=== PATIENT | male | born 1990 ===

== ENCOUNTER 2018-03-13 23:58 | Emergency (ER) | payer SELFPAY ==
--- NOTE | 2018-03-14 00:17 | ED PDOC ---
Arrival/HPI <Chris Monreal - Last Filed: 03/14/18 03:24> - General Historian: Patient, EMS EM Caveat: Uncooperative, Language Barrier - History of Present Illness Time/Duration: Prior to Arrival (BIBA) Symptom Onset: Sudden Symptom Course: Unchanged Quality: Unable to Describe Severity Level: 1 Activities at Onset: Rest Context: Street <Myra Mckeon - Last Filed: 03/14/18 23:53> - General Chief Complaint: Substance Abuse Time Seen by Provider: 03/14/18 00:07 - History of Present Illness Narrative History of Present Illness (Text): 03/14/18 01:08 Pt is a 27 yr old male who was found on the street in [place] earlier this evening and brought in by ambulance. On arrival, pt A&O but would not respond to questions and would not give history. Pt produced a [employer] drivers license and pointed to it. Denies shortness of breath, chest pain, fevers, chills, nausea, vomiting, diarrhea, or other complaints. (Myra Mckeon) Past Medical History - Provider Review Nursing Documentation Reviewed: Yes - Travel History Have you recently traveled outside [place] w/in the past 3 mons?: No - Past History Past History: No Previous <Myra Mckeon - Last Filed: 03/14/18 23:53> Family/Social History - Physician Review Nursing Documentation Reviewed: Yes Family/Social History: Unknown Family HX <Myra Mckeon - Last Filed: 03/14/18 23:53> Allergies/Home Meds <Chris Monreal - Last Filed: 03/14/18 03:24> <Myra Mckeon - Last Filed: 03/14/18 23:53> Allergies/Adverse Reactions: Allergies No Known Allergies Allergy (Verified 08/31/16 17:20) Home Medications: Home Meds Medication Instructions Recorded Confirmed Gabapentin [Neurontin] 800 mg PO DAILY 09/12/15 08/31/16 Unobtainable 03/14/18 03/14/18 Review of Systems - Review of Systems Constitutional: Normal Eyes: Normal ENT: Normal Respiratory: Normal Cardiovascular: Normal Gastrointestinal: Normal Genitourinary Male: Normal Musculoskeletal: Normal Skin: Normal Neurological: Normal Endocrine: Normal Hemo/Lymphatic: Normal Psychiatric: Normal <Myra Mckeon - Last Filed: 03/14/18 23:53> Physical Exam Vital Signs Reviewed: Yes Temperature: Afebrile Blood Pressure: Normal Pulse: Regular Respiratory Rate: Normal Appearance: Positive for: Well-Appearing, Non-Toxic, Comfortable Pain Distress: None Mental Status: Positive for: Confused - Systems Exam Head: Present: Atraumatic, Normocephalic Pupils: Present: PERRL, Other (dilated) Extroacular Muscles: Present: EOMI Conjunctiva: Present: Normal Mouth: Present: Moist Mucous Membranes Neck: Present: Normal Range of Motion Respiratory/Chest: Present: Clear to Auscultation, Good Air Exchange. No: Respiratory Distress, Accessory Muscle Use Cardiovascular: Present: Regular Rate and Rhythm, Normal S1, S2. No: Murmurs Abdomen: No: Tenderness, Distention, Peritoneal Signs Back: Present: Normal Inspection Upper Extremity: Present: Normal Inspection. No: Cyanosis, Edema Lower Extremity: Present: Normal Inspection. No: Edema Neurological: Present: GCS=15, CN II-XII Intact, Speech Normal Skin: Present: Warm, Dry, Normal Color. No: Rashes Psychiatric: Present: Alert, Agitated, Other (PCP confusion) <Myra Mckeon - Last Filed: 03/14/18 23:53> Vital Signs Temp Pulse Resp BP Pulse Ox 03/14/18 01:59 82 16 118/64 100 03/14/18 00:19 97.3 F L 81 18 120/107 H 100 03/13/18 23:59 84 18 124/76 99 Medical Decision Making <Chris Monreal - Last Filed: 03/14/18 03:24> <Myra Mckeon - Last Filed: 03/14/18 23:53> ED Course and Treatment: 03/14/18 01:11 Impression Pt is a 27 yr old male who was found on the street in [place] earlier this evening and brought in by ambulance. Plan Labs including Tox screen and ETOH Assess and dispo Progress note Labs wnl and VSS 03/14/18 01:39 was able to converse with pt is alert and oriented x [address] but not time Pt states he took PCP sometime before he was found but would not say how much; pt continues to be slow to respond Will continue to monitor until alert and stable Pt A&Ox3 and asking to leave; VSS and ambulated well on d/c (Myra Mckeon) - Lab Interpretations Lab Results: 03/14/18 00:26 03/14/18 00:26 Lab Results 03/14/18 00:40: Urine Opiates Screen Negative, Urine Methadone Screen Negative, Ur Barbiturates Screen Negative, Ur Phencyclidine Scrn Positive H, Ur Amphetamines Screen Negative, U Benzodiazepines Scrn Negative, U Oth Cocaine Metabols Negative, U Cannabinoids Screen Positive H 03/14/18 00:40: Urine Color Yellow, Urine Appearance Clear, Urine pH 6.0, Ur Specific [place] >= 1.030, Urine Protein 30 H, Urine Glucose (UA) Negative, Urine Ketones 15 H, Urine Blood Small H, Urine Nitrate Negative, Urine Bilirubin Small H, Urine Urobilinogen 0.2, Ur Leukocyte Esterase Negative, Urine RBC 1 - 3, Urine WBC 0 - 2, Ur Epithelial Cells 0 - 2, Urine Other Mucus 03/14/18 00:26: Alcohol, Quantitative < 10 03/14/18 00:26: Sodium 143, Potassium 3.9, Chloride 104, Carbon Dioxide 27, Anion Gap 16, BUN 14, Creatinine 1.1, Est GFR ( Amer) > 60, Est GFR (Non- Af Amer) > 60, Random Glucose 106, Calcium 8.9, Total Bilirubin 1.0, AST 68 H, ALT 42, Alkaline Phosphatase 52, Total Protein 7.3, Albumin 4.6, Globulin 2.8, Albumin/Globulin Ratio 1.7 03/14/18 00:26: WBC 12.9 H, RBC 4.29, Hgb 13.5 L, Hct 40.1 L, MCV 93.5, MCH 31.5 , MCHC 33.7, RDW 13.8, Plt Count 169, MPV 9.0 - PA / BIOINFORMATICIST / Resident Statement / has reviewed & agrees with the documentation as recorded. <Chris Monreal - Last Filed: 03/14/18 03:24> Disposition/Present on Arrival <Chris Monreal - Last Filed: 03/14/18 03:24> - Present on Arrival Any Indicators Present on Arrival: Yes History of DVT/PE: No History of Uncontrolled Diabetes: No Urinary Catheter: No - Disposition Have Diagnosis and Disposition been Completed?: Yes Disposition Time: 02:52 Patient Plan: Discharge <Myra Mckeon - Last Filed: 03/14/18 23:53> - Disposition Diagnosis: PCP (phencyclidine) abuse, Marijuana abuse Disposition: HOME/ ROUTINE Condition: STABLE Discharge Instructions (ExitCare): Drug Abuse and Drug Addiction (DC) Forms: [employer] ([place]ian)
[2018-03-14 00:18] VITALS: BMI 21.9
[2018-03-14 00:23] VITALS: TEMP 97.3; O2SAT 100
[2018-03-14 00:46] LABS: HEMOGLOBIN 13.5 g/dL (14.0-18.0); MEAN CELL VOLUME 93.5 fl (80.0-105.0); MEAN CORPUSCULAR HEMOGLOBIN 31.5 pg (25.0-35.0); MEAN CORPUSCULAR HGB CONC 33.7 g/dl (31.0-37.0); RBC 4.29 10^6/uL (3.5-6.1); RED CELL DISTRIBUTION WIDTH 13.8 % (11.5-14.5); WHITE BLOOD COUNT 12.9 10^3/ul (4.5-11.0)
[2018-03-14 00:52] LABS: URINE BILIRUBIN SMALL (NEGATIVE); URINE BLOOD SMALL (NEGATIVE); URINE GLUCOSE (UA) NEGATIVE (NEGATIVE); URINE LEUKOCYTE ESTERASE NEGATIVE Leu/uL (NEGATIVE); URINE PROTEIN 30 mg/dL (<30 mg/dL); URINE UROBILINOGEN 0.2 E.U./dL (<1 E.U./dL)
[2018-03-14 00:59] LABS: URINE APPEARANCE CLEAR (CLEAR); URINE COLOR YELLOW (YELLOW)
[2018-03-14 01:01] LABS: ALB/GLOB RATIO 1.7 (1.1-1.8); ALBUMIN 4.6 g/dL (3.0-4.8); ALT/SGPT 42 U/L (7-56); AST/SGOT 68 U/L (17-59); BLOOD UREA NITROGEN 14 mg/dL (7-21); CALCIUM 8.9 mg/dL (8.4-10.5); GFR AFRICAN-AMERICAN > 60; GFR NON-AFRICAN AMERICAN > 60
[2018-03-14 01:04] LABS: URINE EPITHELIAL CELLS 0 - 2 /hpf (0-5); URINE WBC 0 - 2 /hpf (0-6)
[2018-03-14 01:32] LABS: BARBITURATES, UR NEGATIVE (NEGATIVE); BENZODIAZEPINES, UR NEGATIVE (NEGATIVE); OPIATES, UR NEGATIVE (NEGATIVE); PHENCYCLIDINE, UR POSITIVE (NEGATIVE)
[2018-03-14 08:04] VITALS: BP 118/64; PULSE 82; RESP 16
== END 2018-03-14 02:53 | disposition home or self-care (01) ==
LOC: MERGE 23:58 → ED 23:58
DX: F16.10 Hallucinogen abuse, uncomplicated (principal); F12.10 Cannabis abuse, uncomplicated
CPT/HCPCS: 80053; 81001; 85027; 99282; G0480

== ENCOUNTER 2018-03-21 16:00 | Emergency (ER) | payer MEDICAID, OTHER ==
[2018-03-21 16:01] VITALS: BMI 28.7
[2018-03-21 16:31] VITALS: TEMP 98
[2018-03-21] MEDS ORDERED: Sodium Chloride 0.9% 500 ML IV STA (17:27)
[2018-03-21] MEDS ORDERED: Sodium Chloride 0.9% 1,000 ML IV STA (17:29)
--- NOTE | 2018-03-21 18:04 | RAD ---
HISTORY: drug abuse COMPARISON: No prior. FINDINGS: LUNGS: No active pulmonary disease. PLEURA: No significant pleural effusion identified, no pneumothorax apparent. CARDIOVASCULAR: Normal. OSSEOUS STRUCTURES: No significant abnormalities. VISUALIZED UPPER ABDOMEN: Normal. OTHER FINDINGS: None. IMPRESSION: No active disease.
[2018-03-21 18:13] LABS: BASO # 0.01 K/mm3 (0.0-2.0); BASO % 0.1 % (0.0-3.0); EOS % 0.4 % (1.5-5.0); GRAN # 8.52 (1.4-6.5); GRAN % 83.6 % (50.0-68.0); HEMOGLOBIN 16.2 g/dL (14.0-18.0); LYMPH # 1.1 (1.2-3.4); MEAN CELL VOLUME 93.8 fl (80.0-105.0); MEAN CORPUSCULAR HEMOGLOBIN 32.4 pg (25.0-35.0); MEAN CORPUSCULAR HGB CONC 34.5 g/dl (31.0-37.0); MEAN PLATELET VOLUME 9.2 fl (7.0-11.0); MONO # 0.5 (0.1-0.6); MONO % 4.9 % (1.0-6.0); RED CELL DISTRIBUTION WIDTH 13.7 % (11.5-14.5); URINE BILIRUBIN NEGATIVE (NEGATIVE); URINE BLOOD TRACE-INTACT (NEGATIVE); URINE GLUCOSE (UA) NEGATIVE (NEGATIVE); URINE LEUKOCYTE ESTERASE NEGATIVE Leu/uL (NEGATIVE); URINE PROTEIN 30 mg/dL (<30 mg/dL); URINE UROBILINOGEN 0.2 E.U./dL (<1 E.U./dL); WHITE BLOOD COUNT 10.2 10^3/ul (4.5-11.0)
[2018-03-21 18:14] LABS: URINE APPEARANCE CLEAR (CLEAR); URINE COLOR YELLOW (YELLOW)
[2018-03-21 18:20] LABS: SALICYLATE < 1 mg/dL (2.0-20.0)
[2018-03-21 18:22] LABS: ALB/GLOB RATIO 1.5 (1.1-1.8); ALBUMIN 4.9 g/dL (3.0-4.8); ALT/SGPT 34 U/L (7-56); AST/SGOT 28 U/L (17-59); BLOOD UREA NITROGEN 18 mg/dL (7-21); CALCIUM 9.4 mg/dL (8.4-10.5); GFR NON-AFRICAN AMERICAN > 60; URINE BACTERIA MOD (NEG); URINE FINE GRANULAR CAST 0 - 2 /hpf (0-2); URINE WBC 0 - 2 /hpf (0-6)
[2018-03-21 18:23] LABS: URINE AMORPHOUS SEDIMENT TRACE; URINE COARSE GRANULAR CAST TRACE /hpf (0-2); URINE HYALINE CAST 0 - 2 /hpf
[2018-03-21 18:40] LABS: ACETAMINOPHEN < 10.0 ug/ml (10.0-20.0)
[2018-03-21 19:24] LABS: BARBITURATES, UR NEGATIVE (NEGATIVE); BENZODIAZEPINES, UR NEGATIVE (NEGATIVE); OPIATES, UR NEGATIVE (NEGATIVE); PHENCYCLIDINE, UR POSITIVE (NEGATIVE)
[2018-03-21 19:48] VITALS: RESP 17
--- NOTE | 2018-03-21 20:02 | ED PDOC ---
Arrival/HPI - General Historian: Patient, EMS - History of Present Illness Time/Duration: Prior to Arrival <Tish Mckinney - Last Filed: 03/21/18 19:57> <Chris Zafar - Last Filed: 03/21/18 20:21> - General Chief Complaint: Medical Clearance Time Seen by Provider: 03/21/18 16:36 - History of Present Illness Narrative History of Present Illness (Text): 03/21/18 19:57 27-year-old male presents today brought in by ambulance after a third constitution party bystander said that the patient was acting strange. Patient admits to using marijuana and PCP today. He denies headache dizziness or weakness. Denies chest pain or shortness of breath. He denies any abdominal pain. Patient denies any complaints. (Tish Mckinney) Past Medical History - Provider Review Nursing Documentation Reviewed: Yes - Travel History Have you recently traveled outside [place] w/in the past 3 mons?: No - Past History Past History: No Previous - Infectious Disease Hx of Infectious Diseases: None - Tetanus Immunization Tetanus Immunization: Unknown - Cardiac Hx Cardiac Disorders: No Hx Hypertension: No - Pulmonary Hx Respiratory Disorders: Yes Hx Asthma: Yes - Neurological Hx Neurological Disorder: No HX Cerebrovascular Accident: No Hx Seizures: No - HEENT Hx HEENT Disorder: No - Renal Hx Renal Disorder: No - Endocrine/Metabolic Hx Endocrine Disorders: No - Hematological/Oncological Hx Blood Disorders: Yes Hx Cancer: Yes (Kee's sarcoma Right foot) - Integumentary Hx Dermatological Disorder: Yes Other/Comment: Kee's sarcoma Right foot - Musculoskeletal/Rheumatological Hx Musculoskeletal Disorders: No - Gastrointestinal Hx Gastrointestinal Disorders: No - Genitourinary/Gynecological Hx Sexually Transmitted Diseases: No - Psychiatric Hx Psychophysiologic Disorder: No Hx Substance Use: Yes - Surgical History Other/Comment: Kee's sarcoma Right foot - Anesthesia Hx Anesthesia: Yes Hx Anesthesia Reactions: No Hx Malignant Hyperthermia: No <Tish Mckinney - Last Filed: 03/21/18 19:57> Family/Social History - Physician Review Nursing Documentation Reviewed: Yes Family/Social History: Unknown Family HX Smoking Status: Light Smoker < 10 Cigarettes Daily Hx Alcohol Use: Yes Frequency of alcohol use: Socially Hx Substance Use: Yes Substance used: PCP; marijuana <Tish Mckinney - Last Filed: 03/21/18 19:57> Allergies/Home Meds <Tish Mckinney - Last Filed: 03/21/18 19:57> <Chris Zafar - Last Filed: 03/21/18 20:21> Allergies/Adverse Reactions: Allergies No Known Allergies Allergy (Verified 08/31/16 17:20) Home Medications: Home Meds Medication Instructions Recorded Confirmed Gabapentin [Neurontin] 800 mg PO DAILY 09/12/15 08/31/16 Unobtainable 03/14/18 03/14/18 Review of Systems - Review of Systems Constitutional: absent: Fatigue, Fevers Respiratory: absent: SOB, Cough Cardiovascular: absent: Chest Pain, Palpitations Gastrointestinal: absent: Abdominal Pain, Nausea, Vomiting Genitourinary Male: absent: Dysuria, Frequency, Hematuria Musculoskeletal: absent: Arthralgias, Back Pain, Neck Pain Skin: absent: Rash, Pruritis Neurological: absent: Headache, Dizziness Psychiatric: absent: Anxiety, Depression, Suicidal Ideation <Tish Mckinney - Last Filed: 03/21/18 19:57> Physical Exam Vital Signs Reviewed: Yes Temperature: Afebrile Blood Pressure: Normal Pulse: Tachycardic Respiratory Rate: Normal Appearance: Positive for: Well-Appearing, Non-Toxic, Comfortable Pain Distress: None Mental Status: Positive for: Alert and Oriented X 3 - Systems Exam Head: Present: Atraumatic Pupils: Present: PERRL Extroacular Muscles: Present: EOMI Conjunctiva: Present: Normal Mouth: Present: Moist Mucous Membranes Neck: Present: Normal Range of Motion Respiratory/Chest: Present: Clear to Auscultation, Good Air Exchange. No: Respiratory Distress, Accessory Muscle Use Cardiovascular: Present: Regular Rate and Rhythm, Normal S1, S2. No: Murmurs Abdomen: No: Tenderness, Distention, Peritoneal Signs, Rebound, Guarding Back: Present: Normal Inspection. No: Midline Tenderness, Paraspinal Tenderness Upper Extremity: Present: Normal ROM Lower Extremity: Present: Normal Inspection, Normal ROM Neurological: Present: GCS=15, Speech Normal Skin: Present: Warm, Dry, Normal Color. No: Rashes Psychiatric: Present: Alert, Oriented x 3 <Tish Mckinney - Last Filed: 03/21/18 19:57> Vital Signs Temp Pulse Resp BP Pulse Ox 03/21/18 19:47 86 17 121/76 98 03/21/18 16:30 98.0 F 115 H 22 129/84 99 Medical Decision Making <Tish Mckinney - Last Filed: 03/21/18 19:57> <Chris Zafar - Last Filed: 03/21/18 20:21> ED Course and Treatment: 03/21/18 19:58 27yr old male presents today BIBA for drug abuse. pt alert and oriented. admits to PCP and marijuana. cbc; wnl cmp; wnl Tylenol within normal limits Salicylates within normal limits Alcohol within normal limits UDS: + PCP, + marijuana cxr; no infiltrate or effusion ekg; sinus tachycardia at [address] elevations normal axis normal intervals Patient reassessment: Patient nontoxic well-appearing no distress with stable vital signs feeling better and wants to go home. Denies HI or SI. Denies any complaints. Patient seen and evaluated by dr. zafar. Patient alert and oriented in no distress ambulating with a steady gait. Patient was advised to increase fluids, to follow up with primary care physician and stop using drugs. Patient verbalizes understanding of discharge instructions and need for immediate followup. all aspects of this case were discussed the attending of record. Impression: Drug abuse Increase fluids Follow-up primary care physician within the next days Return if symptoms worsen or persist or if new concerning symptoms develop ( Tish Mckinney) - Lab Interpretations Lab Results: 03/21/18 17:43 03/21/18 17:43 Lab Results 03/21/18 18:30: Urine Opiates Screen Negative, Urine Methadone Screen Negative, Ur Barbiturates Screen Negative, Ur Phencyclidine Scrn Positive H, Ur Amphetamines Screen Negative, U Benzodiazepines Scrn Negative, U Oth Cocaine Metabols Negative, U Cannabinoids Screen Positive H 03/21/18 17:43: Alcohol, Quantitative < 10 03/21/18 17:43: Salicylates < 1 L, Acetaminophen < 10.0 L 03/21/18 17:43: Sodium 148, Potassium 4.1, Chloride 108 H, Carbon Dioxide 26, Anion Gap 18, BUN 18, Creatinine 1.4, Est GFR ( Amer) > 60, Est GFR (Non- Af Amer) > 60, Random Glucose 80, Calcium 9.4, Total Bilirubin 0.7, AST 28, ALT 34, Alkaline Phosphatase 58, Total Protein 8.1, Albumin 4.9 H, Globulin 3.2, Albumin/Globulin Ratio 1.5 03/21/18 17:43: Urine Color Yellow, Urine Appearance Clear, Urine pH 6.0, Ur Specific [place] >= 1.030, Urine Protein 30 H, Urine Glucose (UA) Negative, Urine Ketones Negative, Urine Blood Trace-intact H, Urine Nitrate Negative, Urine Bilirubin Negative, Urine Urobilinogen 0.2, Ur Leukocyte Esterase Negative , Urine RBC 2 - 5, Urine WBC 0 - 2, Ur Epithelial Cells None, Amorphous Sediment Trace, Urine Bacteria Mod, Hyaline Casts 0 - 2, Fine Granular Casts 0 - 2, Coarse Granular Casts Trace H 03/21/18 17:43: WBC 10.2 D, RBC 5.00, Hgb 16.2 D, Hct 46.9, MCV 93.8, MCH 32.4 , MCHC 34.5, RDW 13.7, Plt Count 231, MPV 9.2, Gran % 83.6 H, Lymph % (Auto) 11.0 L, [place] % (Auto) 4.9, Eos % (Auto) 0.4 L, Baso % (Auto) 0.1, Gran # 8.52 H , Lymph # (Auto) 1.1 L, [place] # (Auto) 0.5, Eos # (Auto) 0.0, Baso # (Auto) 0.01 - RAD Interpretation Radiology Orders: 03/21/18 17:28 CHEST PORTABLE [RAD] Stat - Medication Orders Current Medication Orders: Discontinued Medications Sodium Chloride (Sodium Chloride 0.9%) 1,000 mls @ 999 mls/hr IV .[id number] STA Stop: 03/21/18 18:29 Last Admin: 03/21/18 17:39 Dose: 999 mls/hr eMAR Start Stop Document 03/21/18 17:39 SF (Rec: 03/21/18 17:40 SF [email or web address]) Intravenous Solution Start Date 03/21/18 Start Time 17:39 End Date 03/21/18 End time 18:40 Total Infusion Time 61 - PA / CYTOLOGY TEACHER / Resident Statement AVI has reviewed & agrees with the documentation as recorded. AVI has examined the patient and agrees with the treatment plan. <Chris Zafar - Last Filed: 03/21/18 20:21> Disposition/Present on Arrival - Present on Arrival Any Indicators Present on Arrival: No History of DVT/PE: No History of Uncontrolled Diabetes: No Urinary Catheter: No History of Decub. Ulcer: No History Surgical Site Infection Following: None - Disposition Have Diagnosis and Disposition been Completed?: Yes Disposition Time: 20:03 Patient Plan: Discharge <Tish Mckinney - Last Filed: 03/21/18 19:57> <Chris Zafar - Last Filed: 03/21/18 20:21> - Disposition Diagnosis: PCP (phencyclidine) abuse, Marijuana abuse Disposition: HOME/ ROUTINE Condition: GOOD Discharge Instructions (ExitCare): Drug Abuse and Drug Addiction (DC) Additional Instructions: increase fluids Follow-up primary care physician within the next days Return if symptoms worsen or persist or if new concerning symptoms develop Referrals: Sawyer Bradshaw DO [Staff Provider] - Follow up with primary [facility] [Outside] - Follow up with primary Forms: [employer] ([place])
--- NOTE | 2018-03-21 20:31 | CARD ---
APPROVED REPORT EKG Measurement Heart [id number] ID [id number] <Conclusion> Sinus tachycardia Biatrial enlargement Abnormal ECG
[2018-03-21 20:39] VITALS: BP 124/80; PULSE 82; O2SAT 99
== END 2018-03-21 20:45 | disposition home or self-care (01) ==
LOC: ED 16:00
DX: F12.10 Cannabis abuse, uncomplicated (principal); F16.10 Hallucinogen abuse, uncomplicated; F17.210 Nicotine dependence, cigarettes, uncomplicated
CPT/HCPCS: 71045; 80053; 80320; 80324; 80329; 80345; 80346; 80349; 80353; 80358; 80361; 81001; 83992; 85025; 93005; 96360; 99284; J7040